=== PATIENT | male | born 1960 | race Caucasian/White ===

== ENCOUNTER 2016-07-03 15:59 | Inpatient (IN) | payer MEDICARE, BC ==
[~2016-07-03] VITALS: Ht 182.9 cm; Wt 95.3 kg
[~2016-07-03 15:59] MED LIST: AMBIEN10 MG PO; CELEXA20 MG PO; DEPAKOTE ER500 MG PO; HYDROCODONE-APA1 TAB PO; IMITREX100 MG PO; LISINOPRIL10 MG PO; PRADAXA150 MG PO; TOPROL XL50 MG PO; ULTRAM50 MG PO; XANAX1 MG PO
[2016-07-03 16:53] LABS: HEMATOCRIT 38.6 % (42.0-54.0); HEMOGLOBIN 12.6 g/dL (13.5-17.5); MCH 30.2 pg (26.0-34.0); MCHC 32.6 g/dL (31.0-37.0); MCV 92.6 fL (80.0-100.0); MEAN PLATELET VOLUME 9.7 fL (7.4-10.4); RBC 4.17 10x6/uL (4.20-6.10); RDW 13.3 % (11.5-14.5); WBC 9.7 10x3/uL (4.8-10.8)
[2016-07-03 16:55] LABS: PLATELET COUNT 118 10x3/uL (130-400)
[2016-07-03 17:08] LABS: APTT 47.6 SECONDS (22.8-39.4); INR 3.1 (0.85-1.17); PROTIME 32.3 SECONDS (11.6-15.0)
[2016-07-03 17:31] LABS: ALBUMIN 2.9 g/dL (3.4-5.0); ANION GAP 18.6 mmol/L (8-16); BILIRUBIN - TOTAL 0.2 mg/dL (0.2-1.3); CALCIUM 7.9 mg/dL (8.5-10.1); CARBON DIOXIDE 21.6 mmol/L (21.0-32.0); CREATININE - SERUM 5.7 mg/dL (0.6-1.3); POTASSIUM - SERUM 4.2 mmol/L (3.5-5.1); PROTEIN - SERUM 5.8 g/dL (6.4-8.2)
[2016-07-03 17:53] LABS: LYMPHOCYTES 14 % (15-50); MONOCYTES 13 % (2-11); NEUTROPHILS 65 % (40-80)
[2016-07-03 17:57] LABS: PLATELET ESTIMATE DECREASED
--- NOTE | 2016-07-03 20:10 | NUR ---
RECEIVED FROM ER, [id number], IV-L. WRIST-RAC, PLACE ON TELEMTRY, HAS PACEMAKER, AT BED SIDE, BED IS LOW, CALL LIGHT IN REACH, WILL CONTINUE TO MONITOR
[2016-07-03] MEDS ORDERED: PRINIVIL20 MG PO (20:28)
[2016-07-03] MEDS ORDERED: BETAPACE 120 M120 MG PO (20:30)
[2016-07-03] MEDS ORDERED: PRAVACHOL40 MG PO (20:30)
[2016-07-03] MEDS ORDERED: COUMADIN5 MG PO (20:33)
[2016-07-03 22:18] VITALS: BP 95/53
[2016-07-04] VITALS (7 sets, daily range): BP systolic 93–135; BP diastolic 56–82; Ht 182.9 cm; Wt 95.3 kg
--- NOTE | 2016-07-04 02:17 | NUR ---
ADMISSION ASSESSMENT COMPLETE, PLEASE SEE FLOW SHEETS FOR DETAILS. NO S&S OF ACUTE DISTRESS NOTED. LUNG SOUNDS CLEAR THROUGHOUT ALL LUNG VAIL, PT STATES HAS HAD DECREASED APPETITE AND DIARRHEA FOR MORE THAN THREE DAYS. PT PRESENTS WITH C-DIFF, IS ON CONTACT ISOLATION AND ALL PRECAUSTIONS IN PLACE. ABDOMEN DISTENDED AND FIRST. BOWEL SOUNDS HYPERACTIVE X4 QUADRANTS. PULSES PALPABLE PERIPHERALLY. PT DENIES PAIN/NEEDS AT THIS TIME. IS CURRENTLY ON 2LNC FOR SPO2 @ 86%. BED LOW AND LOCKED, CALL LIGHT IN REACH. WILL CONTINUE TO MONITOR.
--- NOTE | 2016-07-04 03:47 | NUR ---
INFUSING FLAGYL, PT DENIES ANY NEEDS, CALL LIGHT IN REACH, WILL CONTINUE TO MONITOR
--- NOTE | 2016-07-04 07:22 | NUR ---
AM ROUNDING- PT LAYING IN BED ON BACK WITH EYES OPEN C/O HEADACH THAT IS CAUSING HIM TO HAVE NAUSEA AND VOMITING. WILL CALL DOCTOR AND SEE ABOUT GETTING SOMETHING FOR HEADACHE. IN CONTACT ISOLATION FOR C.DIFF. PT HAS PACEMAKER PER REPORT. IV SEEN TO RIGHT THAT HAS D5 W LR RUNNING AT 100CC. ON VIA NC. UP AD TRAMAINE. ON MONITOR SHOWING ST, HR 107 WITH PVC. WILL CALL DOCTOR AND CONTINUE TO MONITOR.
--- NOTE | 2016-07-04 07:29 | NUR ---
PAGED SHARAD BOUCHER NP TO SEE ABOUT GETTING PT SOMETHING FOR HIS HEADACHE. AWAITING CALLBACK.
--- NOTE | 2016-07-04 07:31 | NUR ---
RACHID BOUCHER NP CALLED BACK. NEW ORDERS RECEIVED.
[2016-07-04 09:12] LABS: CALCIUM 7.9 mg/dL (8.5-10.1); CARBON DIOXIDE 24.6 mmol/L (21.0-32.0); POTASSIUM - SERUM 3.6 mmol/L (3.5-5.1)
[2016-07-04 09:13] LABS: CREATININE - SERUM 1.8 mg/dL (0.6-1.3)
[2016-07-04 09:18] LABS: BASOPHILS 0 % (0.0-2.0); EOSINOPHILS 0 % (0-7); HEMATOCRIT 33.1 % (42.0-54.0); LYMPHOCYTES 9.2 % (15-50); MCH 29.9 pg (26.0-34.0); MCHC 33.2 g/dL (31.0-37.0); MCV 89.9 fL (80.0-100.0); MEAN PLATELET VOLUME 9.7 fL (7.4-10.4); MONOCYTES 20.2 % (2-11); NEUTROPHILS 70.6 % (40-80); PLATELET COUNT 122 10x3/uL (130-400); RBC 3.68 10x6/uL (4.20-6.10); RDW 12.8 % (11.5-14.5); WBC 5.8 10x3/uL (4.8-10.8)
--- NOTE | 2016-07-04 09:30 | NUR ---
PTS INFORMED ME THAT PT HAS A RARE HEART CONDITION CALLED ARVD AND CHF. PTS STATED PT HAS A PACEMAKER AND DEFIBRILATOR TO LEFT SIDE OF CHEST. GAVE PT HIS HOME MEDICATION ORDERED TO HELP WITH HEADACHE AND N/V. PT GIVEN HIS BETAPACE ORDERED THAT PT STATES HELP WITH HEART CONDITION WELL. ON MONITOR CURRENTLY SHOWING SR, HR 91 WITH BIGEMINY/PVC'S AT TIMES AND PACED AT TIMES. WILL CONTINUE TO MONITOR.
--- NOTE | 2016-07-04 09:37 | NUR ---
AUGUSTIN BOUCHER MELTING OPERATOR TO INFORM HER OF WHAT STATED ABOUT PTS HEART CONDITION AND WHAT PT IS DOING ON MONITOR. ALSO TO LET HER KNOW THAT PTS IS REQUESTING FOR PT TO BE TRANSFERRED TO [facility] IN [place] WHERE HIS PRIMARY DOCTOR IS. AWAITING CALLBACK.
--- NOTE | 2016-07-04 09:42 | NUR ---
RECEIVED CALLBACK FROM RACHID BOUCHER NP. INFORMED HER OF PTS HEART RATE AND RYTHM AND ALSO INFORMED HER ABOUT THE INFORMATION I RECEIVED FROM ABOUT PTS RARE HEART CONDITION AND PACEMAKER/DEFIBRILATOR. I NOTIFIED RACHID ALSO ABOUT PTS REQUEST TO BE TRANSFERRED TO [facility]. RACHID STATED OKAY AND THAT SHE WILL SPEAK TO TOLBERT ABOUT WHAT THE NEXT STEP IS. WILL CONTINUE TO MONITOR.
--- NOTE | 2016-07-04 11:00 | NUR ---
MARILYN, LIQUOR CLERK FROM [facility] CALLED AND STATED SHE TALKED TO DR. GARDUNO AND STATED THAT SHE DOES NOT CURRENTLY HAVE A BED FOR PT BUT PT IS FIRST ON THE LIST FOR TRANSFER. MARILYN REQUESTED A FACESHEET, RECENT EKG, AND RECENT LAB WORK. WILL LET HEEL BUILDER MACHINE KNOW AND CONTINUE TO MONITOR.
--- NOTE | 2016-07-04 11:28 | NUR ---
SHAHIDA RECEIVED NOTIFICATION FROM EMMA PETIT THAT PATIENT WILL REQUIRE ACUTE/ACUTE TRANSFER TO [facility] FOR DX OF ARVD (ARRYTHMOGENIC RIGHT VENTRICULAR DYSPLASIA). PATIENT IF FOLLOWED BY DR. CLAY SCHULTZ FOR ABOVE CONDITION AND DR TOLBERT FEELS ACUTE TRANSFER IS NECESSARY. CM PLACED CALL TO [employer], CONTRACT CLERK AUT[employer] TO INFORM OF TRANSFER ORDER/REQUEST. [employer] SPOKE WITH MELYSSA SERRANO, METHODS ENGINEER METAL DRILLING MACHINE OPERATOR, WHO GAVE ADMINISTRATIVE APPROVAL FOR ACUTE TRANSFER TO [facility]. SHAHIDA PLACED CALL TO [facility]'S CONTRACT CLERK [employer] MARILYN WHO WAS AWARE OF TRANSFER REQUEST AND STATED SHE HAS SPOKEN WITH DR CLAY SCHULTZ WHO HAS AGREED TO BE ACCEPTING/ADMITTING MD WHEN PATIENT ARRIVES TO [facility]. MARILYN INFORMED THAT [facility] ARE NO AVAILABLE BEDS OPEN, BUT THAT SHE WILL CALL CM OR MED 2 UNIT WHEN BED IS AVAILABLE. SHE REQUESTED FACE SHEET AND RECENT EKG/LABS BE FAXED TO [phone]. SHE ALSO STATED SHE WILL FAX TRANSFER BACK AGREEMENT FOR PATIENT TO SIGN AND BE FAXED BACK TO HER. CM WILL AWAIT BED AVAILABILITY AND WILL FOLLOW AND ASSIST WITH TRANSFER NEEDED. [facility] CONTRACT CLERK AUT[employer]BILE CONTACT: [phone] SHANNAN PEACE RN, SHAHIDA
--- NOTE | 2016-07-04 12:37 | NUR ---
Patient Name: ESTELA RODGERS Admission Status: ER Accout number: [id number] Admission Date: 07-03-2016 : 1960 Admission Diagnosis: Attending: BERTRAM Current LOS: 1 Anticipated DC Date: 07-05-2016 Planned Disposition: Other Type of Facility Primary Insurance: MEDICARE A & B PLANNED EXTERNAL PROVIDER: [facility] Discharge Planning Comments: * Is the patient Alert and Oriented? Yes 0 * How many steps to enter\exit or inside your home? NONE 0 * PCP DR. GEORGE 0 * Pharmacy [facility] 0 * Preadmission Environment Home with Family 0 * ADLs Independent 0 * Equipment Other 0 * Other Equipment [employer]IT[employer] 0 * List name and contact numbers for known caregivers / representatives who currently or will assist patient after discharge: CARLEY REYNA, SPOUSE, 0 * Community resources currently utilized None 0 * Please name any agencies selected above. NONE 0 * Additional services required to return to the preadmission environment? Yes * Can the patient safely return to the preadmission environment? Yes 0 * Has this patient been hospitalized within the prior 30 days at any hospital? No 0 CM MET WITH PT IN ROOM TO DISCUSS DISCHARGE PLANNING AND NEEDS. PT REPORTS LIVING AT HOME INDEPENDENTLY WITH SPOUSE. PT HAS A [employer] MONITORING SYSTEM AND NO MEDICAL EQUIPMENT PROVIDER PREFERENCE. PT HAS NO OUTSIDE SERVICES ASSISTING IN THE HOME. CM DISCUSSED TRANSFER TO [facility]. PT AND SPOUSE BOTH IN AGREEMENT WITH TRANSFER TO THE [facility] SOON POSSIBLE; REPORTED THE DOCTORS HAVE ALREADY DISCUSSED THIS WITH THEM, PT HAS A SPECIAL ELECTRICAL HEART CONDITION THAT REQUIRES SPECIAL ATTENTION AND PT'S HEART DOCTOR HAS ACCEPTED PT AT THE [facility] AND THEY ARE WAITING ON BED AVILABILITY. CM DICUSSED TRANSFER AND TRANSFER BACK AGREEMENT, PT WILL SIGN WHEN IT WHEN RECEIVED. RN SHAHIDA CAUSEY WORKING ON TRANSFER TO [facility]. CM WILL AWAIT BED AVAILABILITY AND WILL FOLLOW AND ASSIST WITH TRANSFER NEEDED. [facility] APPAREL MANAGER CONTACT: [phone] Landscape Foreman: Jose Mcbride
--- NOTE | 2016-07-04 18:07 | NUR ---
PT SITTING UP IN BED ON BACK WITH EYES CLOSED RESTING. NO NEED AT CURRENT TIME. WILL CONTINUE TO MONITOR.
--- NOTE | 2016-07-04 19:34 | NUR ---
RESUMED CARE OF PT, 02-2L, HAS PACEMAKER AND DEFIBELATER, [id number], IV-RAC-D5 LR @100, AND FLAYGL INFUSING, AT BED SIDE, DENIES ANY NEEDS, CALL LIGHT IN REACH, SRX2, [id number], WILL CONTINUE TO MONITOR
[2016-07-04 20:11] LABS: HEMATOCRIT 37.1 % (42.0-54.0); HEMOGLOBIN 12.6 g/dL (13.5-17.5)
--- NOTE | 2016-07-04 23:27 | NUR ---
IV CAME OUT OF RAC, RESITED TO L. HAND 1ST ATTEMPT, DENIES ANY NEEDS, CALL LIGHT IN REACH
--- NOTE | 2016-07-04 23:41 | NUR ---
PAGED RACHID MEMBRENO, TO SEE IF CAN GET ORDER FOR IMITREX, PT COMPLAINS OF ZACKARY. HEAD ACHE, WAIT ING DIORAMA MODEL MAKER BACK
[2016-07-05 01:14] VITALS: BP 130/75
[2016-07-05 04:00] VITALS: BP 131/74
[2016-07-05 05:52] LABS: BASOPHILS 0 % (0.0-2.0); EOSINOPHILS 0.3 % (0-7); HEMATOCRIT 35.7 % (42.0-54.0); HEMOGLOBIN 12.1 g/dL (13.5-17.5); LYMPHOCYTES 20.3 % (15-50); MCHC 33.9 g/dL (31.0-37.0); MCV 88.6 fL (80.0-100.0); MONOCYTES 18.4 % (2-11); PLATELET COUNT 123 10x3/uL (130-400); RBC 4.03 10x6/uL (4.20-6.10); RDW 12.8 % (11.5-14.5)
[2016-07-05 06:08] LABS: WBC 3.8 10x3/uL (4.8-10.8)
[2016-07-05 06:21] LABS: CALCIUM 8.4 mg/dL (8.5-10.1); CARBON DIOXIDE 29.8 mmol/L (21.0-32.0); CHLORIDE - SERUM 107 mmol/L (98-107); GLUCOSE 109 mg/dL (74-106); POTASSIUM - SERUM 3.1 mmol/L (3.5-5.1); SODIUM 143 mmol/L (136-145)
[2016-07-05 06:22] LABS: CALC OSMOLALITY 285 mosm/kg (275-300); CREATININE - SERUM 0.9 mg/dL (0.6-1.3); UREA NITROGEN 12 mg/dL (7-18); eGFR NON AFRICAN AMERICAN > 90 mL/min (90-120)
--- NOTE | 2016-07-05 07:34 | NUR ---
AM ROUNDING- PT LAYING ON LEFT SIDE WITH EYES CLOSED RESTING. PT IS UP AD TRAMAINE. ON MONITOR SHOWING PACED, HR 91 WITH PVC'S AT TIMES. IV SEEN TO LEFT HAND WITH D5 LR RUNNING AT 100CC. PT HAS PACEMAKER AND DEFIBRILATOR. ON 02 AT 2L VIA NC. IN CONTACT ISOLATION FOR C.DIFF. PTS POTASSIUM IS 3.1 THIS AM, PAGED RACHID BOUCHER OPHTHALMIC SURGICAL ASSISTANT TO INFORM HER OF THIS. AWAITING CALLBACK. PT IS CURRENTLY WAITING FOR A BED AT [facility]. WILL CONTINUE TO MONITOR.
[2016-07-05 07:50] VITALS: BP 114/58
--- NOTE | 2016-07-05 09:28 | NUR ---
1003- PAGED JANNET PETITIAN TO INFORM HER OF PTS POTASSIUM LEVEL THIS AM (3.1). ALSO PAGED RACHID TO SEE ABOUT RESTARTING PT ON HOME MEDICATION THAT WAS NOT CONTINUED, FAMILY AND PT REQUESTED TO BE RESTARTED ON. AWAITING CALLBACK. 1072- RACHID BOUCHER NP CALLED BACK. NEW ORDERS RECEIVED.
[2016-07-05 11:59] VITALS: BP 123/76
[2016-07-05 12:28] LABS: INR 3.69 (0.85-1.17)
--- NOTE | 2016-07-05 12:54 | NUR ---
Nutrition follow-up: Diet advanced to clears at this time Labs reviewed Wt: 209# BM's have slowed down. Will need nutrition support started if diet unable to advance past clears within 48-[address]N following.
--- NOTE | 2016-07-05 15:26 | NUR ---
ASSUMED CARE FOR THIS PT FROM RONIT ALVA. PT IS ALERT AND ORIENTED RESTING QUIETLY IN BED. CL IN REACH. PT REFUSED HIS DEPAKOTE AND STATES HE ONLY TAKES ONCE A DAY. HELD COUMADIN PER AND PROTOCOL R/T INR 3.69. PT DENIES ANY CURRENT PAIN OR NEEDS. WILL CTM.
[2016-07-05 16:44] VITALS: BP 116/76
[2016-07-05] MEDS ORDERED: FLAGYL 500500 MG/100 IV (16:54)
[2016-07-05] MEDS ORDERED: PROTONIX40 MG PO (16:55)
--- NOTE | 2016-07-05 19:36 | NUR ---
RECEIVED REPORT, IV-L. HAND-D5 LR @100 AND FLAGYL INFUSING, 02-2L, [id number], AT BEDSIDE, CALL LIGHT IN REACH, DENIES ANY NEEDS AT THIS TIME, WILL CONTINUE TO MONITOR
[2016-07-05 20:20] VITALS: BP 129/81
--- NOTE | 2016-07-05 22:30 | NUR ---
PT TRANSFER TO [facility], TRANSPORTED VIA [facility]
== END 2016-07-05 23:37 | disposition short-term general hospital (02) | DRG 372 ==
LOC: D.ER 15:59 → D.M2 18:39
PROVIDERS: Emergency Medicine; ADMIT Emergency Medicine
DX: A04.7 Enterocolitis due to Clostridium difficile (principal); N17.9 Acute kidney failure, unspecified; I42.8 Other cardiomyopathies; I95.9 Hypotension, unspecified; E86.0 Dehydration; I48.91 Unspecified atrial fibrillation; D64.9 Anemia, unspecified; I11.0 Hypertensive heart disease with heart failure; I50.9 Heart failure, unspecified; R51 Headache; F41.9 Anxiety disorder, unspecified; Z79.01 Long term (current) use of anticoagulants; Z95.0 Presence of cardiac pacemaker; Z87.891 Personal history of nicotine dependence

== ENCOUNTER → 2017-07-25 13:59 | Outpatient (CLI) | payer MEDICARE, BC ==
[2016-07-04 14:31] VITALS: BMI 28.5
[~2017-07-25 13:59] MED LIST changes: +BETAPACE 120 M120 MG PO; +COUMADIN5 MG PO; +FLAGYL 500500 MG/100 IV; +PRAVACHOL40 MG PO; +PRINIVIL20 MG PO; +PROTONIX40 MG PO
== END | disposition home or self-care (01) ==
LOC: D.RT 07-18 10:00 → D.RAD 07-18 11:00 → D.RT 13:59
DX: Z51.81 Encounter for therapeutic drug level monitoring (principal); Z79.899 Other long term (current) drug therapy